=== PATIENT | male | born 1935 ===

== ENCOUNTER 2022-07-11 07:16 | Day surgery (SDC) | payer OTHER ==
[~2022-07-11] VITALS: Ht 172.7 cm; Wt 67.1 kg
[~2022-07-11 07:16] MED LIST: AMLODI PO; KEPPRA500 MG PO; MYRBETRIQ8 MG/1 ML PO; TIM
[2022-07-11] MEDS ORDERED: TRAM1TAB98 PO (13:05)
[2022-07-11] MEDS ORDERED: NEURONTIN300 MG PO (13:06)
[2022-07-11] MEDS ORDERED: POLY119PG PO (13:06)
== END 2022-07-11 15:10 | disposition home or self-care (01) ==
LOC: CIR.AMB 07:16
PROVIDERS: ATTEND Surgery
DX: K40.20 Bilateral inguinal hernia, without obstruction or gangrene, not specified as recurrent (principal); Z20.822 Contact with and (suspected) exposure to COVID-19; I10 Essential (primary) hypertension
CPT/HCPCS: 49650; C1781